=== PATIENT | male | born 1985 | race Caucasian/White ===

== ENCOUNTER 2023-12-12 06:33 | Emergency (ER) | payer BC ==
[~2023-12-12] VITALS: Ht 185.4 cm; Wt 90.4 kg
[2023-12-12] MEDS: KETOROLAC 30 MG/ML 1ML VIAL IV ONE (07:14)
[2023-12-12] MEDS: ONDANSETRON 4MG 2ML VIAL IV ONE ×2 (07:14→09:47)
[2023-12-12] MEDS ORDERED: WELLTAB40 PO (07:29)
[2023-12-12] MEDS ORDERED: AMBI5TAB PO (07:29)
[2023-12-12 07:33] LABS: BASO % 0.3 % (0.0-1.0); EOS % 0.5 % (0.0-3.0); HEMATOCRIT 41.3 % (42.0-52.0); HEMOGLOBIN 14.1 g/dl (13.5-17.5); LYMPH # 0.9 10^3/uL (1.5-5.0); LYMPH % 9.8 % (24.0-44.0); MEAN CORPUSCULAR HEMOGLOBIN 31.3 pg (27.0-33.0); MEAN CORPUSCULAR HGB CONC 34.1 g/dl (32.0-36.5); MEAN CORPUSCULAR VOLUME 91.8 fl (80.0-96.0); MONO # 0.7 10^3/uL (0.0-0.8); MONO % 8.4 % (2.0-8.0); NEUTROPHILS % 80.7 % (36.0-66.0); PLATELET COUNT, AUTOMATED 234 10^3/uL (150-450); WHITE BLOOD COUNT 8.7 10^3/uL (4.0-10.0)
[2023-12-12 07:56] LABS: BLOOD UREA NITROGEN 16 MG/DL (9-23); CALCIUM LEVEL 9.7 MG/DL (8.5-10.1); CARBON DIOXIDE LEVEL 24 MMOL/L (20-31); CHLORIDE LEVEL 104 MMOL/L (98-107); CREATININE FOR GFR 1.27 MG/DL (0.70-1.30); GLOMERULAR FILTRATION RATE > 60.0 (>60); GLUCOSE, FASTING 113 MG/DL (60-100); POTASSIUM SERUM 4.8 MMOL/L (3.5-5.1); SODIUM LEVEL 134 MMOL/L (136-145)
[2023-12-12] MEDS: MORPHINE 4 MG/ML 1ML VIAL IV ONE (08:56)
[2023-12-12] MEDS ORDERED: KETO10TAB PO (09:10)
[2023-12-12] MEDS ORDERED: PERC5TAB12 PO (09:10)
[2023-12-12] MEDS ORDERED: ONDA-282 PO (09:10)
[2023-12-12] MEDS ORDERED: FLOM0.4C39 PO (09:10)
[2023-12-12] MEDS: PERCOCET 5MG/325MG TAB PO ONE (10:47)
[2023-12-12] MEDS: METOCLOPRAMIDE INJ 10MG/2ML VIAL IV ONE (10:48)
[2023-12-12 11:33] VITALS: BP 151/98; TEMP 97; O2SAT 100
[2023-12-14] MEDS ORDERED: WELL100T2 PO (09:03)
[2023-12-14] MEDS ORDERED: TAMS1CAP17 PO (13:18)
[2023-12-14] MEDS ORDERED: KETO10TAB PO (13:18)
[2023-12-14] MEDS ORDERED: ONDA-282 PO (13:18)
[2023-12-14] MEDS ORDERED: OXYC1TAB23 PO (13:18)
[2023-12-14] MEDS ORDERED: ACET-897 PO (13:24)
[2023-12-14] MEDS ORDERED: XANA0.25 PO (13:24)
[2023-12-14] MEDS ORDERED: OMEP1CAP73 PO (13:24)
[2023-12-14] MEDS ORDERED: SENN-122 PO (13:24)
[2023-12-15] MEDS ORDERED: LEVO1TAB40 PO (06:58)
[2023-12-15] MEDS ORDERED: PYRI1TAB5 PO (07:31)
[2023-12-15] MEDS ORDERED: PERCOCET PO (07:31)
[2023-12-15] MEDS ORDERED: MILKSUS3 PO (07:31)
[2023-12-15] MEDS ORDERED: WELL100T2 PO (07:31)
[2023-12-15] MEDS ORDERED: AMBI5TAB PO (07:31)
[2023-12-15] MEDS ORDERED: XANA0.25 PO ×2 (07:31)
[2023-12-15] MEDS ORDERED: PRIL20TA2 PO (07:31)
[2023-12-15] MEDS ORDERED: MIRA3350 PO (07:31)
[2023-12-15] MEDS ORDERED: FLOM0.4C39 PO (07:31)
[2023-12-15] MEDS ORDERED: SENO8.6T10 PO (07:31)
== END 2023-12-12 11:33 | disposition home or self-care (01) ==
LOC: M ED 06:33
DX: N20.1 Calculus of ureter (principal); K40.90 Unilateral inguinal hernia, without obstruction or gangrene, not specified as recurrent; Z79.899 Other long term (current) drug therapy
CPT/HCPCS: 74176; 80048; 81001; 85025; 96374; 96375; 96376; 99284; J1885; J2405; J2765

== ENCOUNTER → 2024-01-06 | Outpatient (CLI) | payer BC ==
[~2024-01-06] MED LIST: ACET-897 PO; AMBI5TAB PO; FLOM0.4C39 PO; KETO10TAB PO; LEVO1TAB40 PO; MILKSUS3 PO; MIRA3350 PO; OMEP1CAP73 PO; ONDA-282 PO; OXYC1TAB23 PO; PERC5TAB12 PO; PERCOCET PO; PRIL20TA2 PO; PYRI1TAB5 PO; SENN-122 PO; SENO8.6T10 PO; TAMS1CAP17 PO; WELL100T2 PO; WELLTAB40 PO; XANA0.25 PO
[2024-01-06 13:35] LABS: BASO % 1.3 % (0.0-1.0); EOS # 0.1 10^3/uL (0.0-0.5); HEMATOCRIT 41.2 % (42.0-52.0); HEMOGLOBIN 13.5 g/dl (13.5-17.5); LYMPH # 1.1 10^3/uL (1.5-5.0); LYMPH % 35.6 % (24.0-44.0); MEAN CORPUSCULAR HEMOGLOBIN 30.5 pg (27.0-33.0); MEAN CORPUSCULAR HGB CONC 32.8 g/dl (32.0-36.5); MONO # 0.3 10^3/uL (0.0-0.8); MONO % 10.9 % (2.0-8.0); NEUTROPHILS # 1.5 10^3/uL (1.5-8.5); NEUTROPHILS % 48.9 % (36.0-66.0); PLATELET COUNT, AUTOMATED 277 10^3/uL (150-450); RED BLOOD COUNT 4.43 10^6/uL (4.30-6.10)
[2024-01-06 13:41] LABS: HEMOGLOBIN A1c 5.6 % (4.0-6.0)
[2024-01-06 13:51] LABS: URIC ACID 6.9 MG/DL (3.7-9.2)
[2024-01-06 13:52] LABS: C REACTIVE PROTEIN QUANTITATIV < 0.40 MG/DL (<1.0)
[2024-01-06 13:55] LABS: ALBUMIN 4.2 G/DL (3.2-5.2); ALKALINE PHOSPHATASE 76 U/L (40-129); ALT/SGPT 39 U/L (7.0-40); AST/SGOT 16 U/L (<34); BILIRUBIN,TOTAL 0.8 MG/DL (0.3-1.2); BLOOD UREA NITROGEN 16 MG/DL (9-23); CALCIUM LEVEL 9.6 MG/DL (8.5-10.1); CARBON DIOXIDE LEVEL 28 MMOL/L (20-31); CHLORIDE LEVEL 106 MMOL/L (98-107); CHOLESTEROL LEVEL 250 MG/DL (<200); CHOLESTEROL RISK RATIO 4.38 (<5); CREATININE FOR GFR 0.95 MG/DL (0.70-1.30); CREATININE, URINE 164.6 MG/DL; GLOMERULAR FILTRATION RATE > 60.0 (>60); GLUCOSE, FASTING 89 MG/DL (60-100); LDL CHOLESTEROL 168.2 MG/DL (<100); MAU/CREAT RATIO 134.2 MCG/MG (0.0-30.0); POTASSIUM SERUM 4.4 MMOL/L (3.5-5.1); PTH INTACT 44.8 PG/ML (18.5-88.0); SODIUM LEVEL 140 MMOL/L (136-145); TOTAL 25(OH) VITAMIN D 30.5 NG/ML (20.0-100.0); TOTAL PROTEIN 7.4 G/DL (5.7-8.2); TRIGLYCERIDES LEVEL 124 MG/DL (<150); VITAMIN B12 LEVEL 528 PG/ML (211-911)
[2024-01-06 13:56] LABS: FERRITIN 135.5 NG/ML (10.5-307.3); FREE T4 1.31 NG/DL (0.89-1.76)
[2024-01-08 09:38] LABS: INSULIN LEVEL 3.3 uIU/mL (<=18.4)
== END ==
LOC: M PLALAB 09:35
PROVIDERS: ATTEND Family Medicine
DX: I10 Essential (primary) hypertension (principal); E55.9 Vitamin D deficiency, unspecified; N20.0 Calculus of kidney; R73.01 Impaired fasting glucose

== ENCOUNTER → 2024-07-14 | Outpatient (CLI) | payer BC ==
[~2024-07-14] MED LIST changes: -AMBI5TAB PO; -FLOM0.4C39 PO; +TAMS-18 PO; +ZOLP-532 PO
[2024-07-14 10:40] LABS: BASO % 0.9 % (0.0-1.0); EOS % 0.9 % (0.0-3.0); HEMATOCRIT 43.9 % (42.0-52.0); HEMOGLOBIN 14.5 g/dl (13.5-17.5); LYMPH # 1.3 10^3/uL (1.5-5.0); LYMPH % 40.1 % (24.0-44.0); MEAN CORPUSCULAR HEMOGLOBIN 30.3 pg (27.0-33.0); MEAN CORPUSCULAR VOLUME 91.8 fl (80.0-96.0); MONO # 0.4 10^3/uL (0.0-0.8); MONO % 11.5 % (2.0-8.0); NEUTROPHILS # 1.5 10^3/uL (1.5-8.5); NEUTROPHILS % 46.6 % (36.0-66.0); PLATELET COUNT, AUTOMATED 274 10^3/uL (150-450); RED BLOOD COUNT 4.78 10^6/uL (4.30-6.10); WHITE BLOOD COUNT 3.2 10^3/uL (4.0-10.0)
[2024-07-14 11:17] LABS: URIC ACID 7.6 MG/DL (3.7-9.2)
[2024-07-14 11:21] LABS: ALBUMIN 4.5 G/DL (3.2-5.2); ALKALINE PHOSPHATASE 71 U/L (40-129); ALT/SGPT 30 U/L (7.0-40); AST/SGOT 12 U/L (<34); BILIRUBIN,TOTAL 1.1 MG/DL (0.3-1.2); BLOOD UREA NITROGEN 14 MG/DL (9-23); CALCIUM LEVEL 9.6 MG/DL (8.5-10.1); CARBON DIOXIDE LEVEL 29 MMOL/L (20-31); CHLORIDE LEVEL 103 MMOL/L (98-107); CHOLESTEROL LEVEL 259 MG/DL (<200); CHOLESTEROL RISK RATIO 4.32 (<5); CREATININE FOR GFR 0.98 MG/DL (0.70-1.30); GLOMERULAR FILTRATION RATE > 90.0 (>60); GLUCOSE, FASTING 89 MG/DL (60-100); HDL CHOLESTEROL 59.9 MG/DL (>40); LDL CHOLESTEROL 183.5 MG/DL (<100); NON-HDL-C 199.1 MG/DL; POTASSIUM SERUM 4.8 MMOL/L (3.5-5.1); SODIUM LEVEL 139 MMOL/L (136-145); TOTAL PROTEIN 7.6 G/DL (5.7-8.2); TOTAL PROTEIN,RANDOM URINE 9.7 MG/DL (0.0-14.0); TRIGLYCERIDES LEVEL 78 MG/DL (<150)
[2024-07-14 11:24] LABS: CREATININE, URINE 153.8 MG/DL; CREATININE,RANDOM URINE 153.8 MG/DL; MALB URINE SIEMENS < 3.0 MG/L
[2024-07-16 07:43] LABS: BERMUDA GRASS IGE < 0.10 kU/L (<0.10); BIRCH IGE < 0.10 kU/L (<0.10); COMMON RAGWEED SHORT IGE 1.03 kU/L (<0.10); D001 IGE D PTERONYSSINUS 0.18 kU/L (<0.10); D002-IGE D FARINAE 0.15 kU/L (<0.10); E001-IGE CAT DANDER < 0.10 kU/L (<0.10); E005-IGE DOG DANDER < 0.10 kU/L (<0.10); ELM IGE < 0.10 kU/L (<0.10); I006 IGE COCKROACH < 0.10 kU/L (<0.10); IMMUNOGLOBULIN E FOR ALLERGENS 23 kU/L (<OR=114); M002 IGE CLADOSPORIUM HERBARU < 0.10 kU/L (<0.10); M003 IGE ASPERGILLUS FUMIGATU < 0.10 kU/L (<0.10); M006 IGE ALTERNIA ALTERNATA < 0.10 kU/L (<0.10); M1-PENICILLIUM NOTATUM < 0.10 kU/L (<0.10); MOUSE URINE IGE < 0.10 kU/L (<0.10); MUGWORT IGE < 0.10 kU/L (<0.10); OAK IGE < 0.10 kU/L (<0.10); ROUGH PIGWEED IGE < 0.10 kU/L (<0.10); SHEEP SORREL IGE < 0.10 kU/L (<0.10); SYCAMORE IGE < 0.10 kU/L (<0.10); T001-IGE MAPLE BOX ELDER < 0.10 kU/L (<0.10); T006-IGE MOUNTAIN CEDAR 1.39 kU/L (<0.10); T014 COTTONWOOD IGE < 0.10 kU/L (<0.10); TIMOTHY GRASS IGE 0.15 kU/L (<0.10); WALNUT TREE IGE < 0.10 kU/L (<0.10); WHITE ASH IGE 0.19 kU/L (<0.10); WHITE MULBERRY IGE < 0.10 kU/L (<0.10)
[2024-07-19 15:49] LABS: APOLIPOPROTEIN A1 145 mg/dL (>=115); APOLIPOPROTEIN B 127 mg/dL (<90); APOLIPOPROTEIN B/A-1 RATIO 0.88 (<0.77)
[2024-07-20 09:41] LABS: 6-TGN SEE SEPARATE REPORT (230-400); 6MMPN SEE SEPARATE REPORT (<5700)
[2024-07-22 01:48] LABS: TPMT Activity 14 (>12)
== END ==
LOC: M PLALAB 09:07
PROVIDERS: ATTEND Family Medicine
DX: E78.2 Mixed hyperlipidemia (principal); I10 Essential (primary) hypertension; K51.20 Ulcerative (chronic) proctitis without complications; R73.01 Impaired fasting glucose; N20.0 Calculus of kidney; J30.89 Other allergic rhinitis

== ENCOUNTER → 2024-12-23 | Outpatient (CLI) | payer BC | LOC: M RAD 16:18 | PROVIDERS: ATTEND Urology | DX: Z96.0 Presence of urogenital implants (principal) ==